=== PATIENT | female | born 1945 | race Caucasian/White ===

== ENCOUNTER 2017-09-15 21:54 | Observation (INO) | payer MEDICARE, BC ==
--- NOTE | 2017-09-15 22:37 | CT ---
CT OF HEAD NONCONTRAST 09/15/17 INDICATION: Headache. FINDINGS: There is prominence of the ventricular system with mild periventricular white matter hypoattenuation. There is no acute intracranial hemorrhage, mass effect, or midline shift. There is near complete opa cification of the imaged right maxillary sinus which is slightly expanded by the degree of complex op acification which demonstrates mixed density. There is punctate hypodensity at the posterior and lateral left lentiform nucleus which may be on the basis of lacunar infarction versus dilated perivascular space. IMPRESSION: 1. Mild parenchymal volume loss and compensatory dilatation of ventricular system. 2. Mild chronic microvascular ischemic disease. 3. Complex opacification and slight expansion of right maxillary sinus. This may be related to f undal sinusitis. Correlate clinically. POS: [facility]
[2017-09-16] MEDS ORDERED: Metoclopramide HCl 10 MG/2 ML VIAL ONE (01:18)
[2017-09-16] MEDS ORDERED: diphenhydrAMINE 50 MG/ML VIAL ONE (01:18)
[2017-09-16 01:22] LABS: #Basophils 0.1 thou/uL (0.0-0.2); #Eosinphils 0.3 thou/uL (0.0-0.7); #Lymphocytes 3.3 thou/uL (1.20-3.40); #Monocytes 0.5 thou/uL (0.11-0.59); #Neutrophils 2.8 thou/uL (1.40-6.50); %Basophils 1.9 % (0.0-1.0); %Eosinophils 4.4 % (0.0-10.0); %Neutrophils 39.8 % (42.0-75.0); Hemoglobin 13.9 g/dL (12.0-16.0); Mean Corpuscular HGB CONC 33.2 g/dL (32.0-36.0); Mean Corpuscular Volume 99.3 fl (81.0-99.0); Mean Platelet Volume 7.2 fL (7.4-10.4); Platelet Count 225 thou/uL (130-400); RBC Distribution Width 11.7 % (11.5-14.5); Red Blood Cell (RBC) Count 4.21 mill/uL (4.20-5.40); White Blood Cell (WBC) Count 6.9 thou/uL (4.8-10.8)
[2017-09-16 01:27] LABS: Prothrombin Time 13.4 SEC (12.0-14.7)
[2017-09-16 01:43] LABS: ALT (SGPT) 12 U/L (8-55); AST (SGOT) 20 U/L (5-34); Albumin 4.4 g/dL (3.4-4.8); Alkaline Phosphatase 67 U/L (40-150); Anion Gap 13 mmol/L (10-20); BUN (Urea Nitrogen) 24 mg/dL (9.8-20.1); Bilirubin, Total 0.5 mg/dL (0.2-1.2); Calc. Creatinine Clearance 0 mL/min (70-130); Calcium 9.8 mg/dL (7.8-10.44); Carbon Dioxide 29 mmol/L (23-31); Chloride 106 mmol/L (98-107); Estimated GFR-MDRD 78; Globulin 2.9 g/dL (2.4-3.5); Glucose 81 mg/dL (83-110); Potassium 3.8 mmol/L (3.5-5.1); Protein, Total 7.3 g/dL (6.0-8.3); Sodium 144 mmol/L (136-145)
[2017-09-16] MEDS ORDERED: Acetaminophen 500 MG TAB ONE (04:30)
[2017-09-16 04:46] LABS: CKMB 0.7 ng/mL (0-6.6); Troponin I Less than 0.010 ng/mL (< 0.028)
[2017-09-16] MEDS ORDERED: Ondansetron ODT 4 MG TAB PO PRN (05:12)
[2017-09-16] MEDS ORDERED: Acetaminophen 325 MG TAB PO PRN (05:12)
[2017-09-16] MEDS ORDERED: HYDROcodone/Acetaminophen 5/325 mg Tablet PO PRN (05:12)
--- NOTE | 2017-09-16 06:00 | HP ---
CHIEF COMPLAINT: Blurry vision and headache. HISTORY OF PRESENT ILLNESS: The patient is a 72-year-old female who presents with a 1 day history of headache. Headache began yesterday morning and is also accompanied by intermittent "fuzzy vision". Since then, symptoms have improved and her vision has cleared up. She has had 1 occurrence greater than 5 years ago of similar symptoms; however, she did not seek attention at that time. The patient denied any focal weakness or numbness or tingling anywhere else. PAST MEDICAL HISTORY: Patient is significant for acid reflux and allergies. PAST SURGICAL HISTORY: Patient has had prior cholecystectomy, appendectomy, tonsillectomy, hysterect marivel, and x2 as well as gastric sleeve. SOCIAL HISTORY: Negative tobacco or alcohol use. ALLERGIES: The patient is allergic to TETRACYCLINE. MEDICATIONS: The patient is currently on Zyrtec 10 mg once a day. LABORATORY DATA AND X-RAY FINDINGS: CBC, white count was 6.9, H&H is 13 and 41 with platelet of 225. PT was 13, INR is 1.0. Sodium is 144, potassium 3.8, chloride 106, bicarbonate 29, BUN 24, creatin ine 0.7. Head CT shows some microvascular ischemic changes. REVIEW OF SYSTEMS: Please see HPI. Rest of 14-point review of system is negative. PHYSICAL EXAMINATION: VITAL SIGNS: Blood pressure 153/83, pulse 57, respirations 18. The patient is satting 100% on room air, T-max was 97.7. GENERAL: Patient is awake, alert, oriented x3, no acute distress. HEENT: Pupils equal, round, react to light and accommodation. Extraocular muscles intact. TMs ly r. No erythema on throat. NECK: No JVD, no lymphadenopathy. CARDIOVASCULAR: Regular rate and rhythm. LUNGS: Clear to auscultation bilaterally. ABDOMEN: Positive bowel sounds. Soft, nontender, nondistended. EXTREMITIES: No clubbing, cyanosis or edema. NEUROLOGIC: Cranial nerves II through XII are grossly intact. Muscle strength was 5/5 throughout an d equally on both sides. PSYCHIATRIC: Patient is cooperative and answers questions appropriately. ASSESSMENT AND PLAN: 1. Transient ischemic attack. Continue with workup. Continue on aspirin. Start the patient on sta tin and check lipids. Echocardiogram has been ordered. CTA of the head is pending and also has been ordered. 2. Allergies. Consider Zyrtec. 3. CODE STATUS: Patient is FULL CODE.
--- NOTE | 2017-09-16 08:14 | CT ---
CTA BRAIN WITH 3D VOLUME RENDERING: CLINICAL HISTORY: Headache. COMPARISON: Reference is made to a head CT of previous day. FINDINGS: There is a dominant distal left vertebral artery. Basilar artery is patent. No high-grade stenosis or occlusion involving either REGULATORY LEAD. Bilateral MCA and RODNEY are patent. The imaged distal ICA, bilater ally, reveal mild calcification. IMPRESSION: No high-grade stenosis or occlusion involving the [place]. There is mild atherosclerosis. POS: C
[2017-09-16 08:22] LABS: Troponin I Less than 0.010 ng/mL (< 0.028)
[2017-09-16] MEDS ORDERED: Famotidine 20 MG TAB PO SCH (09:00)
[2017-09-16] MEDS ORDERED: Enoxaparin Sodium 30 MG/0.3 ML SYRINGE SC SCH (09:00)
[2017-09-16] MEDS ORDERED: Aspirin 81 mg Enteric Coated Tablet PO SCH (09:00)
--- NOTE | 2017-09-16 11:10 | MRI ---
MRI BRAIN NONCONTRAST: HISTORY: Headache. Sharp pain on top of head. FINDINGS: There is no evidence of acute intracranial hemorrhage or infarct. Diffuse cortical atrophy and chron ic ischemic small-vessel disease are apparent. There is no mass effect or shift of midline structure s. Prominent mucosal thickening is partially visualized within the right maxillary sinus. IMPRESSION: No acute intracranial abnormalities are demonstrated. POS: [facility]
[2017-09-16 11:19] LABS: Troponin I Less than 0.010 ng/mL (< 0.028)
[2017-09-16 11:39] VITALS: BMI 22.3
[2017-09-16 11:57] VITALS: TEMP 98.4
[2017-09-16] MEDS ORDERED: ISOVUE-370 76%-LOCM 1 ML ONE (13:01)
[2017-09-16 16:00] VITALS: BP 129/74
[2017-09-16 17:58] LABS: Cardiac Risk 2.1 (Less than 4.5)
[2017-09-16] MEDS ORDERED: Loratadine 10 MG TAB PO SCH (21:00)
[2017-09-16] MEDS ORDERED: Atorvastatin Calcium 10 MG TAB PO SCH (21:00)
--- NOTE | 2017-09-18 13:44 | DIS ---
For details of the history and physical and the consultative notes, please refer to dictations on rec ord. SUMMARY: A 72-year-old female patient who presented with headache and admitted for possible tr ansient ischemic attack. The patient recovered from the symptoms, was extensively evaluated with CT scan of the [place] as well as CT scan of the brain and MRI all came back, did not show any evidence of intracranial process. The patient therefore having maintained sustained clinical improve ment was subsequently discharge on the following medications: Aspirin 81 mg p.o. daily, Zyrtec 10 mg p.o. q.p.m. Lunesta 2 mg p.o. at bedtime. Condition of patient at the time of discharge was good.
--- NOTE | 2017-10-13 14:22 | EKG ---
Test Reason : Blood Pressure : / mmHG Vent. Rate : 047 BPM Atrial Rate : 047 BPM P-R Int : 156 ms QRS Dur : 088 ms QT Int : 482 ms P-R-T Axes : 027 -02 030 degrees QTc Int : 426 ms Marked sinus bradycardia Abnormal ECG Confirmed by IRENE VELASCO M.D. ([id number]), assignment editor TAPAN DALLAS ([id number]) on 10/13/2017 2:21:23 PM Referred By: Confirmed By:IRENE VELASCO M.D.
== END 2017-09-16 18:51 | disposition home or self-care (01) ==
LOC: ERS 21:54 → 2SE 09-16 06:01
PROVIDERS: ADMIT Hospitalist; ATTEND Hospitalist
DX: G45.9 Transient cerebral ischemic attack, unspecified (principal); K21.9 Gastro-esophageal reflux disease without esophagitis; Z79.899 Other long term (current) drug therapy; Z88.1 Allergy status to other antibiotic agents; Z98.84 Bariatric surgery status; Z90.49 Acquired absence of other specified parts of digestive tract; Z90.89 Acquired absence of other organs; Z90.710 Acquired absence of both cervix and uterus; Z98.891 History of uterine scar from previous surgery
CPT/HCPCS: 70450; 70496; 70551; 80053; 80061; 82553; 84484 ×2; 85025; 85610; 93005; 93306; 96361; 96372; 96374; 96375; 99285; G0378; 36415; J1200; J1650; J2765

== ENCOUNTER 2018-04-03 14:34 | Outpatient (CLI) | payer MEDICARE, BC ==
--- NOTE | 2018-04-03 15:19 | RAD ---
TWO VIEWS CHEST: Comparison: 02-22-15 History: Dyspnea. FINDINGS: Two views of the chest show normal sized cardiomediastinal silhouette. There is no evidence of consol idation, mass, or pleural effusion. Degenerative changes are seen in the spine. IMPRESSION: No evidence of acute cardiopulmonary disease. POS: [facility]
== END 2018-04-03 14:35 | disposition home or self-care (01) ==
LOC: RAD 14:34
PROVIDERS: ATTEND Internal Medicine Critical Care Medicine
DX: R06.00 Dyspnea, unspecified (principal)
CPT/HCPCS: 71046

== ENCOUNTER 2018-06-27 09:38 | Outpatient (CLI) | payer MEDICARE, BC ==
[2018-06-27 10:25] LABS: #Basophils 0.1 thou/uL (0.0-0.2); #Eosinphils 0.3 thou/uL (0.0-0.7); #Lymphocytes 2.1 thou/uL (1.20-3.40); #Monocytes 0.4 thou/uL (0.11-0.59); #Neutrophils 2.2 thou/uL (1.40-6.50); %Lymphocytes 41.1 % (21.0-51.0); %Monocytes 8.5 % (0.0-10.0); %Neutrophils 42.5 % (42.0-75.0); Hemoglobin 13.4 g/dL (12.0-16.0); Mean Corpuscular HGB CONC 33.1 g/dL (32.0-36.0); Mean Corpuscular Volume 96.8 fL (78.0-98.0); Mean Platelet Volume 7.5 fL (7.4-10.4); Platelet Count 232 thou/uL (130-400); RBC Distribution Width 11.6 % (11.5-14.5); Red Blood Cell (RBC) Count 4.18 mill/uL (4.20-5.40); White Blood Cell (WBC) Count 5.2 thou/uL (4.8-10.8)
[2018-06-27 10:27] LABS: Bilirubin Negative (Negative); Blood, Urine Negative (Negative); Clarity CLEAR (Clear); Glucose, Urine (Dipstick) Negative (Negative); Leukocyte Negative (Negative); Nitrite Negative (Negative); Protein, Urine (Dipstick) Negative (Neg-Trace); Specific Gravity, Urine 1.009 (1.002-1.036); Urobilinogen 0.2 mg/dL (0.2-1.0)
[2018-06-27 10:33] LABS: Bacteria/HPF None Seen HPF (None Seen); Hyaline Casts/LPF 0-3 HYALINE CAST LPF (0-3 Hyaline); RBC/HPF None Seen HPF (0-3); Squamous Epithelial None Seen HPF (0-3); WBC/HPF None Seen HPF (0-3)
[2018-06-27 10:46] LABS: Anion Gap 9 mmol/L (10-20); BUN (Urea Nitrogen) 21 mg/dL (9.8-20.1); Calc. Creatinine Clearance 0 mL/min (70-130); Calcium 9.3 mg/dL (7.8-10.44); Carbon Dioxide 29 mmol/L (23-31); Chloride 107 mmol/L (98-107); Estimated GFR-MDRD 84; Glucose 84 mg/dL (83-110); Potassium 3.6 mmol/L (3.5-5.1); Sodium 141 mmol/L (136-145)
[2018-06-27 10:55] LABS: INR-International Normal Ratio 1.1; Prothrombin Time 13.8 SEC (12.0-14.7)
--- NOTE | 2018-06-27 14:32 | EKG ---
Test Reason : Blood Pressure : / mmHG Vent. Rate : 050 BPM Atrial Rate : 050 BPM P-R Int : 158 ms QRS Dur : 092 ms QT Int : 458 ms P-R-T Axes : 074 035 074 degrees QTc Int : 417 ms Sinus bradycardia with Possible Premature atrial complexes with Abberant conduction Otherwise normal ECG When compared with ECG of 16-SEP-2017 00:57, Abberant conduction is now Present Confirmed by MARIELA MACIAS, . SRoxanna ([id number]) on 06/27/2018 2:32:08 PM Referred By: MAXIMO Confirmed By:DR. Nina SIERRA MD
--- NOTE | 2018-06-27 16:25 | RAD ---
CHEST PA AND LATERAL TWO VIEWS: 06/27/18 HISTORY: 72-year-old female for preoperative evaluation. Borderline hyperinflation. Old granulomatous disease. No confluent pneumonia, overt edema or pleural effusion. IMPRESSION: Mild hyperinflation. Old granulomatous disease. Atherosclerosis of the aorta with ectasia. No overt a cute process. POS: [facility]
== END 2018-06-27 09:39 | disposition home or self-care (01) ==
LOC: LABBT 09:38
PROVIDERS: ATTEND Orthopaedic Surgery
DX: Z01.818 Encounter for other preprocedural examination (principal); M17.11 Unilateral primary osteoarthritis, right knee
CPT/HCPCS: 71046; 80048; 81001; 85025; 85610; 87081; 93005; 93010

== ENCOUNTER 2019-02-09 02:52 | Observation (INO) | payer MEDICARE, BC ==
[2019-02-09 03:20] LABS: #Basophils 0.1 thou/uL (0.0-0.2); #Eosinphils 0.3 thou/uL (0.0-0.7); #Lymphocytes 2.3 thou/uL (1.20-3.40); #Monocytes 0.4 thou/uL (0.11-0.59); #Neutrophils 3.6 thou/uL (1.40-6.50); %Basophils 1.7 % (0.0-1.0); %Eosinophils 4.6 % (0.0-10.0); %Monocytes 6.3 % (0.0-10.0); %Neutrophils 53.3 % (42.0-75.0); Hemoglobin 12.9 g/dL (12.0-16.0); Mean Corpuscular HGB CONC 30.8 g/dL (32.0-36.0); Mean Corpuscular Hemoglobin 30.3 pg (27.0-31.0); Mean Corpuscular Volume 98.5 fL (78.0-98.0); Mean Platelet Volume 7.2 fL (7.4-10.4); Platelet Count 221 thou/uL (130-400); RBC Distribution Width 11.6 % (11.5-14.5); Red Blood Cell (RBC) Count 4.25 mill/uL (4.20-5.40); White Blood Cell (WBC) Count 6.8 thou/uL (4.8-10.8)
[2019-02-09 03:43] LABS: ALT (SGPT) 30 U/L (8-55); AST (SGOT) 73 U/L (5-34); Albumin 4.1 g/dL (3.4-4.8); Alkaline Phosphatase 75 U/L (40-150); Anion Gap 10 mmol/L (10-20); BUN (Urea Nitrogen) 19 mg/dL (9.8-20.1); Bilirubin, Total 0.7 mg/dL (0.2-1.2); CK (CPK) 52 U/L (29-168); Calc. Creatinine Clearance 0 mL/min (70-130); Calcium 9.5 mg/dL (7.8-10.44); Carbon Dioxide 27 mmol/L (23-31); Chloride 106 mmol/L (98-107); Estimated GFR-MDRD 85; Globulin 2.6 g/dL (2.4-3.5); Glucose 105 mg/dL (83-110); Potassium 3.9 mmol/L (3.5-5.1); Protein, Total 6.7 g/dL (6.0-8.3); Sodium 139 mmol/L (136-145)
[2019-02-09 06:15] VITALS: BMI 23.8
[2019-02-09] MEDS ORDERED: Calcium Carbonate 500 MG ChewTAB PO PRN (07:03)
[2019-02-09] MEDS ORDERED: Nitroglycerin 0.4 MG TAB (25 Tab Bottle) PO PRN (07:03)
[2019-02-09] MEDS ORDERED: HYDROcodone/Acetaminophen 5/325 mg Tablet PO PRN (07:03)
[2019-02-09] MEDS ORDERED: Ondansetron PF 4 MG/2 ML Vial IVP PRN (07:03)
[2019-02-09] MEDS ORDERED: Cepastat Lozenges 1 LOZ PO PRN (07:03)
[2019-02-09] MEDS ORDERED: Artificial Tears 18 DROP/0.9 ML EA EYE PRN (07:03)
[2019-02-09] MEDS ORDERED: Sodium Chloride 0.65% Nasal 44 ML BOT EA NARE PRN (07:03)
[2019-02-09] MEDS ORDERED: Loperamide HCl 2 MG CAP PO PRN (07:03)
[2019-02-09] MEDS ORDERED: hydrALAZINE 20 MG/ML VIAL SLOW IVP PRN (07:03)
[2019-02-09] MEDS ORDERED: Acetaminophen 325 MG TAB PO PRN (07:03)
[2019-02-09] MEDS ORDERED: Senokot S 8.6-50 MG TAB PO PRN (07:03)
[2019-02-09] MEDS ORDERED: Ondansetron ODT 4 MG TAB PO PRN (07:03)
[2019-02-09] MEDS ORDERED: Loratadine 10 MG TAB PO PRN (07:03)
[2019-02-09] MEDS ORDERED: Bisacodyl 10 MG SUPP PR PRN (07:03)
[2019-02-09] MEDS ORDERED: Diabetic Tussin 200 MG/10 ML UDCUP PO PRN (07:03)
[2019-02-09] MEDS ORDERED: Zolpidem Tartrate 5 MG TAB PO PRN (07:03)
[2019-02-09 07:19] LABS: Troponin I Less than 0.010 ng/mL (< 0.028)
[2019-02-09] MEDS ORDERED: Famotidine 20 MG TAB PO SCH (09:00)
[2019-02-09] MEDS ORDERED: Aspirin 325 mg Enteric Coated Tablet PO SCH (09:00)
[2019-02-09 09:47] LABS: Troponin I Less than 0.010 ng/mL (< 0.028)
[2019-02-09] MEDS ORDERED: Regadenoson 0.4 MG/5 ML SYRINGE ONE (10:22)
--- NOTE | 2019-02-09 12:10 | RAD ---
CHEST 1 VIEW: Date: 02/09/19 INDICATION: History of chest pain. COMPARISON: Prior exam dated 06/27/18. FINDINGS: The prominent COPD change is similar appearing. Mild cardiomegaly is present. No pleural effusion or pneumothorax is evident. Chronic osseous changes are similar appearing. IMPRESSION: Prominent COPD change. POS: [facility]
[2019-02-09 12:40] VITALS: BP 145/67
--- NOTE | 2019-02-09 12:40 | NM ---
Nuclear medicine Cardiac myocardial perfusion SPECT Ejection fraction study Wall motion cine: DATE:02/09/2019 7:55 AM INDICATION: Chest pain TECHNIQUE: Number of days:2 Rest Study: Technetium 99m-sestamibi (Cardiolite) dose:11.00 mCi Stress study: Technetium 99m-sestamibi (Cardiolite) dose:31.70 mCi FINDINGS: Cardiac (myocardial perfusion) SPECT There are no reversible myocardial perfusion defects. Ejection fraction study Left ventricular EF = 76% [place] There is normal wall motion and thickening IMPRESSION: No evidence of reversible myocardial ischemia.
[2019-02-09 12:44] VITALS: TEMP 97.6
--- NOTE | 2019-02-09 14:50 | SS ---
DATE OF ADMISSION: 02/09/2019 DATE OF DISCHARGE: 02/09/2019 PRIMARY CARE PHYSICIAN: [facility] Call Admission. REASON FOR ADMISSION: Chest pain. DATE OF ADMISSION: February 09, 2019, at 3:00 a.m. HISTORY OF PRESENT ILLNESS: A 73-year-old female, who has underlying history of gastroesophageal reflux disease, who came to emergency room for evaluation of chest discomfort. The patient was having upper abdominal and lower chest discomfort on both sides. She was also experiencing pressure sensation over chest, as well as left shoulder pain. She did not have any associated nausea, vomiting, diaphoresis, or palpitation. She did not have any dizziness and she did not have any nausea or vomiting. She did not have any orthopnea, PND, or leg swelling. She denies any calf tenderness. She felt mild shortness of breath. With this symptom, she presented to emergency room. She had relatively hypertension on admission to the ER. She had an electrocardiogram, which was nonspecific. Her chest x-ray was unremarkable. Her D-dimer was also negative and routine blood test including cardiac enzymes were negative. Subsequently, this patient was admitted to telemetry floor. At that point, the patient was completely asymptomatic. Her troponins continued to remain negative and telemetry remained unremarkable. The patient underwent nuclear medicine stress test that resulted as normal. The patient denies any UTI symptoms. She denies any constipation, diarrhea, abdominal pain. She denies any UTI symptoms. REVIEW OF SYSTEMS: CONSTITUTIONAL: Negative for weight loss or gain, sense of well-being, ability to conduct usual activities, exercise tolerance. SKIN/BREAST: Negative for rash, itching, changes in hair growth or loss, nail changes, breast lumps, tenderness, swelling, nipple discharge. EYES: Negative for vision, double vision, tearing, blind spots, pain. ENT/MOUTH: Negative for headaches, vertigo, lightheadedness, injury. Vision, double vision, tearing, blind spots, pain, nose bleeding, colds, obstruction, discharge, dental difficulties, gingival bleeding, dentures, neck stiffness, pain, tenderness, masses in thyroid or other areas CARDIOVASCULAR: Negative for precordial pain, substernal distress, palpitations, syncope, dyspnea on exertion, orthopnea, nocturnal paroxysmal dyspnea, edema, cyanosis, hypertension, heart murmurs, varicosities, phlebitis, claudication. RESPIRATORY: Negative for pain, shortness of breath, wheezing, stridor, cough, hemoptysis, fever or night sweats GASTROINTESTINAL: Negative for poor appetite, dysphagia, indigestion, abdominal pain, heartburn, eructation, nausea, vomiting, hematemesis, jaundice, constipation, or diarrhea, abnormal stools (deepali-colored, tarry, bloody, greasy, foul smelling), flatulence, hemorrhoids, recent changes in bowel habits. GENITOURINARY: Negative for urgency, frequency, dysuria, nocturia, hematuria, polyuria, oliguria, unusual (or change in) color of urine, stones, hesitancy, change in size of stream, dribbling, acute retention or incontinence, libido, potency. MUSCULOSKELETAL: Negative for pain, swelling, redness or heat of muscles or joints, limitation of motion, muscular weakness, atrophy, cramps. NEUROLOGIC/PSYCHIATRIC: Negative for convulsions, paralyses, tremor, incoordination, paresthesias, difficulties with memory of speech, sensory or motor disturbances, or muscular coordination (ataxia, tremor), emotional problems, anxiety, depression, previous psychiatric care, unusual perceptions, hallucinations. ALLERGY/IMMUNOLOGIC: Negative for skin rash, anemia, bleeding tendency, polydipsia, polyuria, intolerance to heat or cold. Please see my HPI for pertinent positives and negatives. All other review of systems reviewed and negative except as mentioned in the HPI. PAST MEDICAL HISTORY: Gastroesophageal reflux disease. PAST SURGICAL HISTORY: Gastric sleeve surgery, appendicectomy, cholecystectomy, x2, and tonsillectomy. PAST PSYCHIATRIC HISTORY: Reviewed and negative. SOCIAL HISTORY: The patient lives at home with family. She drinks alcohol very occasionally. She denies any smoking. She denies any other illicit drug abuse. FAMILY HISTORY: No strong family history of premature coronary artery disease, stroke, or cancer. ALLERGIES: TETRACYCLINE. CURRENT HOME MEDICATIONS: 1. Lunesta 1 mg p.o. at bedtime for insomnia. 2. Cetirizine 10 mg p.o. daily. 3. Ranitidine 150 mg p.o. twice daily p.r.n. EMERGENCY ROOM COURSE: Emergency room course reviewed. PHYSICAL EXAMINATION: VITAL SIGNS: Blood pressure on admission 188/87, pulse 59, respiratory rate 18, temperature 98.5, saturation 100% on room air, and weight 64 kg. GENERAL: The patient is currently alert, awake, and no obvious acute distress. HEENT: Head; normocephalic, atraumatic. Eyes; pupils round, reactive to light. Extraocular muscle intact. ENT; oropharynx within normal limits. Moist mucous membranes. No oral lesion. No pharyngeal erythema. No exudate. NECK: Supple. No JVD. No thyromegaly. No carotid bruit. LUNGS: Clear to auscultation without any rhonchi or rales. CARDIAC: S1, S2. Regular. No murmur. No gallop. No rub. ABDOMEN: Soft. Bowel sounds present. Nontender. Nondistended. No organomegaly. No mass. No suprapubic tenderness. EXTREMITIES: No edema. NEUROLOGIC: Nonfocal examination. SIGNIFICANT LABORATORY DATA: EKG showing normal sinus rhythm, nonspecific changes. Chest x-ray based on my review no acute cardiopulmonary process. CBC; WBC 6.8, hemoglobin 12.9, and platelet 221. D-dimer less than 0.27. BMP; sodium 139, potassium 3.9, chloride 106, carbon dioxide 27, and the BUN 19, creatinine 0.68, glucose 105, and calcium 9.5. LFT; AST 73, ALT 30, alkaline phosphatase 75, and albumin 4.1. Cardiac enzyme negative x3. ASSESSMENT AND PLAN: 1. Chest pain, most likely related with gastroesophageal reflux disease. Given her age and other risk factors, the patient will need observation and we will do serial cardiac enzymes and we will do exercise Cardiolite stress test now. Cardiac enzymes are negative. Telemetry remained unremarkable and the patient is asymptomatic and stress test negative. Her D-dimer is also negative. In this way, we have completely excluded cardiopulmonary etiology and the patient is instructed to take [id number] antacid including ranitidine or Prilosec as needed basis. 2. Insomnia. The patient will continue her home dose of Lunesta. 3. Gastroesophageal reflux disease. The patient is instructed to take fxen-sbn-[id number] Pepcid, ranitidine, and Prilosec. I offered to give prescription, but she wanted to try [id number] medication. 4. Deep venous thrombosis prophylaxis not needed because we are expecting discharge in 24 hours. 5. Gastrointestinal prophylaxis, as mentioned the patient is on Pepcid 20 mg p.o. b.i.d. DATE OF ADMISSION: February 09, 2019, at 3:00 p.m. DATE OF DISCHARGE: February 09, 2019, at 2:00 p.m. DISCHARGE DISPOSITION: Home. PRIMARY DISCHARGE DIAGNOSIS: Chest pain, ruled out acute coronary syndrome. SECONDARY DISCHARGE DIAGNOSES: Insomnia, gastroesophageal reflux disease. PRIMARY PROCEDURE/OPERATION: None. RADIOLOGICAL INVESTIGATION: Chest x-ray, CT, and stress test significant. Labs, please see above. DISCHARGE MEDICATIONS: The patient will continue all her home medication; 1. Cetirizine 10 mg daily. 2. Lunesta 1 mg p.o. at bedtime. 3. Zantac 150 mg p.o. daily. CONTRAINDICATION: None. CODE STATUS: Full code. INPATIENT INDUSTRIAL PRODUCTION MANAGER: None. ALLERGIES: TETRACYCLINE. DISCHARGE PLAN: Posthospital, the patient will follow up with primary care physician. HOSPITAL COURSE: Please see my HPI for further details. The patient was admitted and discharged on the same day. Plan of care as well as all test results discussed with the patient before discharge. Job ID: [id number]
--- NOTE | 2019-02-15 16:36 | EKG ---
Test Reason : Blood Pressure : / mmHG Vent. Rate : 053 BPM Atrial Rate : 053 BPM P-R Int : 148 ms QRS Dur : 088 ms QT Int : 468 ms P-R-T Axes : 049 -11 030 degrees QTc Int : 439 ms Sinus bradycardia Septal infarct , age undetermined Abnormal ECG Confirmed by LEON RAMSEY D.O. ([id number]), mapping editor ASMITA VELAZQUEZ ([id number]) on 02/15/2019 4:35:35 PM Referred By: Confirmed By:LEON RAMSEY D.O.
== END 2019-02-09 15:30 | disposition home or self-care (01) ==
LOC: ERS 02:52 → 2SW 05:56
PROVIDERS: ADMIT Internal Medicine; ATTEND Internal Medicine
DX: R07.89 Other chest pain (principal); K21.9 Gastro-esophageal reflux disease without esophagitis; M25.512 Pain in left shoulder; G47.00 Insomnia, unspecified; Z79.899 Other long term (current) drug therapy; Z88.1 Allergy status to other antibiotic agents
CPT/HCPCS: 71045; 78452; 80053; 82550; 84484 ×2; 85025; 85379; 93005; 93017; 94760; 99285; A9500; 36415; J2785; Q0162

== ENCOUNTER 2019-04-15 14:15 | Outpatient (CLI) | payer MEDICARE, BC ==
[2019-04-15 15:17] LABS: #Basophils 0.1 thou/uL (0.0-0.2); #Eosinphils 0.2 thou/uL (0.0-0.7); #Lymphocytes 1.7 thou/uL (1.20-3.40); #Monocytes 0.5 thou/uL (0.11-0.59); #Neutrophils 2.8 thou/uL (1.40-6.50); %Basophils 1.2 % (0.0-1.0); %Eosinophils 4.1 % (0.0-10.0); %Lymphocytes 32.6 % (21.0-51.0); %Monocytes 8.9 % (0.0-10.0); %Neutrophils 53.1 % (42.0-75.0); Hemoglobin 13.2 g/dL (12.0-16.0); Mean Corpuscular HGB CONC 32.9 g/dL (32.0-36.0); Mean Corpuscular Hemoglobin 32.8 pg (27.0-31.0); Mean Corpuscular Volume 99.6 fL (78.0-98.0); Mean Platelet Volume 7.2 fL (7.4-10.4); Platelet Count 228 thou/uL (130-400); RBC Distribution Width 11.7 % (11.5-14.5); Red Blood Cell (RBC) Count 4.03 mill/uL (4.20-5.40); White Blood Cell (WBC) Count 5.3 thou/uL (4.8-10.8)
[2019-04-15 15:35] LABS: Anion Gap 10 mmol/L (10-20); BUN (Urea Nitrogen) 17 mg/dL (9.8-20.1); Calc. Creatinine Clearance 0 mL/min (70-130); Calcium 9.3 mg/dL (7.8-10.44); Carbon Dioxide 29 mmol/L (23-31); Chloride 106 mmol/L (98-107); Estimated GFR-MDRD 83; Glucose 83 mg/dL (83-110); Potassium 4.1 mmol/L (3.5-5.1); Sodium 141 mmol/L (136-145)
--- NOTE | 2019-04-16 16:53 | EKG ---
Test Reason : Blood Pressure : / mmHG Vent. Rate : 054 BPM Atrial Rate : 054 BPM P-R Int : 146 ms QRS Dur : 086 ms QT Int : 454 ms P-R-T Axes : 070 060 055 degrees QTc Int : 430 ms Sinus bradycardia with Premature atrial complexes Septal infarct (cited on or before 09-FEB-2019) Abnormal ECG When compared with ECG of 09-FEB-2019 03:04, Premature atrial complexes are now Present Questionable change in QRS axis Confirmed by DR. Rohit MAYS ([id number]) on 04/16/2019 4:52:55 PM Referred By: MAXIMO Confirmed By:DR. Rohit MAYS
== END 2019-04-15 14:16 | disposition home or self-care (01) ==
LOC: LABBT 14:15
PROVIDERS: ATTEND Orthopaedic Surgery
DX: Z01.818 Encounter for other preprocedural examination (principal); M75.101 Unspecified rotator cuff tear or rupture of right shoulder, not specified as traumatic
CPT/HCPCS: 80048; 85025; 93005; 93010

== ENCOUNTER 2019-04-17 06:16 | Day surgery (SDC) | payer MEDICARE, BC ==
[2019-04-15 14:26] VITALS: BMI 23.4
[2019-04-17] MEDS ORDERED: Fentanyl 100 MCG/2 ML VIAL ONE (06:29)
[2019-04-17] MEDS ORDERED: Midazolam HCl 2 mg/2 ml Vial ONE (06:29)
[2019-04-17] MEDS ORDERED: Lidocaine 1% (PF) 30 ML VIAL ONE (07:01)
[2019-04-17] MEDS ORDERED: Ropivacaine 0.2% 550 ML 550 ML NERVE BLCK SCH (07:48)
[2019-04-17] MEDS ORDERED: Ondansetron PF 4 MG/2 ML Vial IVP PRN (07:48)
[2019-04-17] MEDS ORDERED: Ketorolac Tromethamine 30 MG/ML VIAL IVP PRN (07:48)
[2019-04-17] MEDS ORDERED: Promethazine HCl 25 MG/ML VIAL IM PRN (07:48)
[2019-04-17] MEDS ORDERED: Zolpidem Tartrate 5 MG TAB PO PRN (07:48)
[2019-04-17] MEDS ORDERED: traMADol HCl 50 MG TAB PO PRN ×2 (07:48)
[2019-04-17] MEDS ORDERED: HYDROcodone/Acetaminophen 5/325 mg Tablet PO PRN ×2 (07:48)
[2019-04-17] MEDS ORDERED: Meperidine HCl/PF 25 MG/ML VIAL ONE (09:32)
--- NOTE | 2019-04-18 09:21 | OP ---
DATE OF PROCEDURE: 04/17/2019 PREOPERATIVE DIAGNOSES: Biceps tendinitis, rotator cuff tear, and impingement syndrome right shoulder. POSTOPERATIVE DIAGNOSES: Biceps tendinitis, rotator cuff tear, and impingement syndrome right shoulder. PROCEDURE PERFORMED: Right shoulder arthroscopic subacromial decompression, arthroscopic rotator cuff repair, and arthroscopic biceps tenotomy. ANESTHESIA: General. BLOOD LOSS: Minimal. SPECIMEN: None. DRAINS: None. COMPLICATIONS: None. DESCRIPTION OF PROCEDURE: The patient was taken to the operating room, where general anesthesia was induced. Her right arm was prepped and draped in usual sterile fashion. After 15 pounds of traction was applied, the scope was placed in the glenohumeral joint. The biceps tendon was quite fibrillated and appeared to be irreparable, debrided it to see if I could find a good core of tendon and this tendon essentially just came apart and retracted distally. I freshened the greater tuberosity with the shaver, performed anterior and inferior acromioplasty, takedown the CA ligament and obtain hemostasis as needed. Three corkscrew suture anchors were placed to the greater tuberosity. Six sutures were passed through the rotator cuff and tied down to bleeding cancellous bone. Shoulder was then drained. Portals were closed with nylon sutures. Sterile dressing was applied. Job ID: [id number]
== END 2019-04-17 13:14 | disposition home or self-care (01) ==
LOC: SDC 06:16
PROVIDERS: ATTEND Orthopaedic Surgery
PROC: 0LQ14ZZ Repair Right Shoulder Tendon, Percutaneous Endoscopic Approach (ICD-10-PCS; principal; 2019-04-17)
PROC: 0LS14ZZ Reposition Right Shoulder Tendon, Percutaneous Endoscopic Approach (ICD-10-PCS; 2019-04-17)
PROC: 0RNJ4ZZ Release Right Shoulder Joint, Percutaneous Endoscopic Approach (ICD-10-PCS; 2019-04-17)
DX: M75.121 Complete rotator cuff tear or rupture of right shoulder, not specified as traumatic (principal); M75.21 Bicipital tendinitis, right shoulder; M75.41 Impingement syndrome of right shoulder; G89.18 Other acute postprocedural pain; Z88.1 Allergy status to other antibiotic agents
CPT/HCPCS: 29826; 29827; 64416; 97139; A4306; C1713; J0690; J2001; J2175; J2250; J2795; J3010

== ENCOUNTER 2020-04-01 12:19 | Outpatient (CLI) | payer MEDICARE, BC ==
--- NOTE | 2020-04-01 14:13 | RAD ---
PA AND LATERAL VIEWS CHEST: Date: 04/01/2020 HISTORY: Dyspnea. COMPARISON: 02/09/2019. FINDINGS: The heart size is normal. There are changes of COPD. Scarring in the right lung apex is again noted. The heart sizes is normal. The aorta is tortuous. No lobar consolidation, pneumothoraces, or pleural effusions are seen. There are degenerative changes in the spine. Evidence of old granulomatous diseas e is redemonstrated. IMPRESSION: Stable exam. No acute process. POS: [facility]
== END 2020-04-01 12:20 | disposition home or self-care (01) ==
LOC: BICRAD 12:19
PROVIDERS: ATTEND Internal Medicine Critical Care Medicine
DX: R06.00 Dyspnea, unspecified (principal)
CPT/HCPCS: 71046

== ENCOUNTER 2021-09-19 05:57 | Inpatient (IN) | payer MEDICARE, OTHER ==
[2021-09-19 08:07] LABS: #Lymphocytes 1.1 thou/uL (1.20-3.40); #Monocytes 0.7 thou/uL (0.11-0.59); #Neutrophils 10.4 thou/uL (1.40-6.50); %Basophils 0.2 % (0.0-1.0); %Eosinophils 0.2 % (0.0-10.0); %Lymphocytes 9.2 % (21.0-51.0); %Neutrophils 84.4 % (42.0-75.0); Mean Corpuscular HGB CONC 32.1 g/dL (32.0-36.0); Mean Corpuscular Hemoglobin 32.2 pg (27.0-31.0); Mean Platelet Volume 7.6 fL (7.4-10.4); Platelet Count 220 thou/uL (130-400); RBC Distribution Width 11.8 % (11.5-14.5); Red Blood Cell (RBC) Count 4.06 mill/uL (4.20-5.40); White Blood Cell (WBC) Count 12.3 thou/uL (4.8-10.8)
[2021-09-19 08:20] LABS: ALT (SGPT) 10 U/L (8-55); AST (SGOT) 18 U/L (5-34); Albumin 3.9 g/dL (3.4-4.8); Alkaline Phosphatase 63 U/L (40-110); Anion Gap 17 mmol/L (10-20); BUN (Urea Nitrogen) 24 mg/dL (9.8-20.1); Bilirubin, Total 0.5 mg/dL (0.2-1.2); Calc. Creatinine Clearance 0 mL/min (70-130); Calcium 8.7 mg/dL (7.8-10.44); Carbon Dioxide 21 mmol/L (23-31); Chloride 109 mmol/L (98-107); Globulin 2.4 g/dL (2.4-3.5); Glucose 127 mg/dL (83-110); Potassium 4.7 mmol/L (3.5-5.1); Protein, Total 6.3 g/dL (5.8-8.1); Sodium 142 mmol/L (136-145)
[2021-09-19] MEDS ORDERED: Ondansetron PF 4 MG/2 ML Vial ONE (09:11)
[2021-09-19] MEDS ORDERED: Morphine 4 MG/ML VIAL ONE (09:11)
[2021-09-19] MEDS ORDERED: Senokot S 8.6-50 MG TAB PO PRN (11:36)
[2021-09-19] MEDS ORDERED: Calcium Carbonate 500 MG ChewTAB PO PRN (11:36)
[2021-09-19] MEDS ORDERED: Ondansetron ODT 4 MG TAB PO PRN (11:36)
[2021-09-19] MEDS ORDERED: Lactated Ringer's 1,000 ML IV SCH (11:45)
[2021-09-19] MEDS ORDERED: Meclizine HCl 25 MG TAB ONE (12:36)
[2021-09-19 12:43] LABS: Troponin I Less than 0.010 ng/mL (< 0.028)
[2021-09-19 13:25] LABS: SARS-CoV-2 NAA Rapid Test Not Detected (NotDetected)
[2021-09-19 15:03] VITALS: BMI 22.0
[2021-09-19] MEDS: HYDROcodone/Acetaminophen 5/325 mg Tablet PO PRN ×2 (17:11→20:36)
[2021-09-19] MEDS: Meclizine HCl 12.5 MG TAB PO SCH ×2 (17:17→20:34)
[2021-09-19] MEDS: Famotidine 20 MG TAB PO SCH (20:35)
[2021-09-19] MEDS ORDERED: HYDROcodone/Acetaminophen 5/325 mg Tablet PO SCH (21:15)
[2021-09-19] MEDS: Melatonin 3 MG TAB PO PRN (21:36)
[2021-09-20] MEDS: HYDROcodone/Acetaminophen 10/325 mg Tablet PO PRN ×4 (00:22→20:12)
[2021-09-20 05:15] LABS: #Basophils 0.1 thou/uL (0.0-0.2); #Eosinphils 0.2 thou/uL (0.0-0.7); #Lymphocytes 1.3 thou/uL (1.20-3.40); #Monocytes 0.5 thou/uL (0.11-0.59); #Neutrophils 3.8 thou/uL (1.40-6.50); %Basophils 1.3 % (0.0-1.0); %Eosinophils 3.5 % (0.0-10.0); %Lymphocytes 21.3 % (21.0-51.0); %Monocytes 8.9 % (0.0-10.0); %Neutrophils 64.9 % (42.0-75.0); Hemoglobin 11.5 g/dL (12.0-16.0); Mean Corpuscular HGB CONC 32.4 g/dL (32.0-36.0); Mean Corpuscular Hemoglobin 32.8 pg (27.0-31.0); Mean Platelet Volume 7.2 fL (7.4-10.4); Platelet Count 171 thou/uL (130-400); RBC Distribution Width 11.8 % (11.5-14.5); Red Blood Cell (RBC) Count 3.49 mill/uL (4.20-5.40); White Blood Cell (WBC) Count 5.9 thou/uL (4.8-10.8)
[2021-09-20 05:32] LABS: Anion Gap 12 mmol/L (10-20); BUN (Urea Nitrogen) 17 mg/dL (9.8-20.1); Calc. Creatinine Clearance 69 mL/min (70-130); Calcium 8.5 mg/dL (7.8-10.44); Carbon Dioxide 26 mmol/L (23-31); Chloride 106 mmol/L (98-107); Glucose 95 mg/dL (83-110); Magnesium 1.8 mg/dL (1.6-2.6); Potassium 3.8 mmol/L (3.5-5.1); Sodium 140 mmol/L (136-145)
[2021-09-20] MEDS: Meclizine HCl 12.5 MG TAB PO SCH ×3 (08:42→20:12)
[2021-09-20] MEDS: Famotidine 20 MG TAB PO SCH ×2 (08:42→20:12)
[2021-09-20] MEDS: Acetaminophen 325 MG TAB PO PRN (16:30)
[2021-09-21 04:40] LABS: #Basophils 0.1 thou/uL (0.0-0.2); #Eosinphils 0.2 thou/uL (0.0-0.7); #Lymphocytes 1.7 thou/uL (1.20-3.40); #Monocytes 0.6 thou/uL (0.11-0.59); #Neutrophils 3.8 thou/uL (1.40-6.50); %Eosinophils 3.9 % (0.0-10.0); %Lymphocytes 26.1 % (21.0-51.0); Hemoglobin 11.4 g/dL (12.0-16.0); Mean Corpuscular Hemoglobin 33.1 pg (27.0-31.0); Mean Platelet Volume 7.3 fL (7.4-10.4); Platelet Count 163 thou/uL (130-400); RBC Distribution Width 11.5 % (11.5-14.5); Red Blood Cell (RBC) Count 3.45 mill/uL (4.20-5.40); White Blood Cell (WBC) Count 6.3 thou/uL (4.8-10.8)
[2021-09-21 05:03] LABS: Anion Gap 10 mmol/L (10-20); BUN (Urea Nitrogen) 13 mg/dL (9.8-20.1); Calc. Creatinine Clearance 72 mL/min (70-130); Calcium 8.5 mg/dL (7.8-10.44); Carbon Dioxide 25 mmol/L (23-31); Chloride 106 mmol/L (98-107); Glucose 85 mg/dL (83-110); Potassium 3.7 mmol/L (3.5-5.1); Sodium 137 mmol/L (136-145)
[2021-09-21] MEDS: Acetaminophen 325 MG TAB PO PRN ×2 (06:51→20:49)
[2021-09-21] MEDS: HYDROcodone/Acetaminophen 10/325 mg Tablet PO PRN (09:06)
[2021-09-21] MEDS: Meclizine HCl 12.5 MG TAB PO SCH ×3 (09:08→21:33)
[2021-09-21] MEDS: Famotidine 20 MG TAB PO SCH ×2 (09:08→20:49)
[2021-09-21 12:20] LABS: Bilirubin Negative (Negative); Blood, Urine Trace (Negative); Clarity Turbid (Clear); Glucose, Urine (Dipstick) Normal (Negative); Ketone, Urine 20 mg/dL (Negative); Leukocyte 500 Leu/uL (Negative); Nitrite 2+ (Negative); Protein, Urine (Dipstick) Negative (Neg-Trace); Specific Gravity, Urine 1.012 (1.002-1.036); Squamous Epithelial 0-3 HPF (0-3); Urobilinogen Normal mg/dL (Less than 2); WBC/HPF Greater than 50 HPF (0-3)
[2021-09-21 12:23] LABS: Bacteria/HPF 1+ HPF (None Seen)
[2021-09-21] MEDS: Melatonin 3 MG TAB PO PRN (20:49)
[2021-09-22] MEDS: Acetaminophen 325 MG TAB PO PRN (06:13)
[2021-09-22 07:12] LABS: Anion Gap 15 mmol/L (10-20); BUN (Urea Nitrogen) 13 mg/dL (9.8-20.1); Calc. Creatinine Clearance 61 mL/min (70-130); Calcium 8.9 mg/dL (7.8-10.44); Carbon Dioxide 24 mmol/L (23-31); Chloride 105 mmol/L (98-107); Glucose 148 mg/dL (83-110); Potassium 3.8 mmol/L (3.5-5.1); Sodium 140 mmol/L (136-145)
[2021-09-22] MEDS: Meclizine HCl 12.5 MG TAB PO SCH ×2 (09:22→14:41)
[2021-09-22] MEDS: Famotidine 20 MG TAB PO SCH (09:23)
[2021-09-22 16:28] VITALS: BP 131/63; TEMP 98
== END 2021-09-22 16:32 | DRG 563 ==
LOC: ERS 05:57 → ERHOLD 11:10 → 2NO 14:25 → OBSVTOIN 09-21 12:35
PROVIDERS: ADMIT Internal Medicine; ATTEND Internal Medicine
DX: S92.901A Unspecified fracture of right foot, initial encounter for closed fracture (principal); Z23 Encounter for immunization; R55 Syncope and collapse; W19.XXXA Unspecified fall, initial encounter; Z20.822 Contact with and (suspected) exposure to COVID-19; M19.90 Unspecified osteoarthritis, unspecified site; G47.00 Insomnia, unspecified; E86.0 Dehydration; H81.10 Benign paroxysmal vertigo, unspecified ear; J30.9 Allergic rhinitis, unspecified; I35.0 Nonrheumatic aortic (valve) stenosis; Z88.1 Allergy status to other antibiotic agents; Z79.899 Other long term (current) drug therapy; Z98.84 Bariatric surgery status; Z90.49 Acquired absence of other specified parts of digestive tract; Z90.710 Acquired absence of both cervix and uterus; Z90.09 Acquired absence of other part of head and neck; Z79.82 Long term (current) use of aspirin
CPT/HCPCS: 29515; 36415; 70450; 80048; 80053; 81001; 83605; 83735; 84443; 84484; 85025; 93005; 93306; 96374; G0378; J2270; J2405; J7120; U0002

== ENCOUNTER 2023-02-27 14:35 | Outpatient (CLI) | payer MEDICARE ==
[~2023-02-27 14:35] MED LIST: Magnevist 469MG/ML 20 ML VIAL ONE
== END 2023-02-27 14:36 | disposition home or self-care (01) ==
LOC: BICMRI 14:35
PROVIDERS: ATTEND Specialist
DX: H81.10 Benign paroxysmal vertigo, unspecified ear (principal); G93.89 Other specified disorders of brain; I67.89 Other cerebrovascular disease
CPT/HCPCS: 70553

== ENCOUNTER 2024-01-16 12:26 | Outpatient (CLI) | payer MEDICARE | END 2024-01-16 12:27 | disposition home or self-care (01) | LOC: BICMAMMO 12:26 | PROVIDERS: ATTEND Internal Medicine | DX: Z12.31 Encounter for screening mammogram for malignant neoplasm of breast (principal) | CPT/HCPCS: 77063; 77067 ==